=== PATIENT | female | born 1945 | race Two or more races ===

== ENCOUNTER 2020-06-29 11:15 | Inpatient (IN) | payer OTHER ==
[~2020-06-29] VITALS: Ht 154.9 cm; Wt 67.6 kg
[2020-06-29] MEDS ORDERED: ENALAPRIL MALEA10 MG PO (14:54)
[2020-06-29] MEDS ORDERED: SYNTHROID88 MCG PO (14:54)
[2020-06-29] MEDS ORDERED: TOPROL XL50 M1 PO (14:54)
[2020-06-29] MEDS ORDERED: PROTONIX40 MG PO (14:55)
[2020-06-29] MEDS ORDERED: PANADOL EXTRA500 MG PO (14:55)
[2020-07-06] MEDS ORDERED: SIMVASTATIN20 MG PO (11:25)
== END 2020-07-07 13:19 | disposition home or self-care (01) | DRG 743 ==
LOC: SURH 07-06 07:14 → O/R 07-06 07:14 → SURH 07-06 11:30 → SURG 07-06 20:28 → O/R 07-06 21:31 → SURH 07-06 21:33
PROVIDERS: ADMIT Obstetrics & Gynecology Gynecologic Oncology; ATTEND Obstetrics & Gynecology Gynecologic Oncology
PROC: 0UT24ZZ Resection of Bilateral Ovaries, Percutaneous Endoscopic Approach (ICD-10-PCS; 2020-07-06)
PROC: 0UB74ZZ Excision of Bilateral Fallopian Tubes, Percutaneous Endoscopic Approach (ICD-10-PCS; 2020-07-06)
PROC: 3E0F7SF Introduction of Other Gas into Respiratory Tract, Via Natural or Artificial Opening (ICD-10-PCS; 2020-07-06)
PROC: 0UT94ZZ Resection of Uterus, Percutaneous Endoscopic Approach (ICD-10-PCS; principal; 2020-07-06 13:30)
DX: N80.0 Endometriosis of uterus (principal); N72 Inflammatory disease of cervix uteri; N84.0 Polyp of corpus uteri; N83.292 Other ovarian cyst, left side; N83.291 Other ovarian cyst, right side